=== PATIENT | male | born 1965 | race Caucasian/White ===

== ENCOUNTER 2017-09-06 22:59 | Emergency (ER) | payer SELFPAY ==
[2017-09-07] MEDS: METHYLPREDNISOLONE 125 MG INJ IM (00:08)
[2017-09-07] MEDS: ALBUTEROL 0.083% (NEB) 2.5 MG/3 ML AMP NEB (00:12)
[2017-09-07] MEDS: IPRATROPIUM (NEB) 0.5 MG/2.5 ML AMP NEB (00:12)
== END 2017-09-07 01:10 | disposition home or self-care (01) ==
LOC: FTE 22:59
DX: J20.9 Acute bronchitis, unspecified (principal)
CPT/HCPCS: 71045; 94664; 96372; 99284-25

== ENCOUNTER 2017-10-16 22:08 | Emergency (ER) | payer MEDICAID, OTHER ==
[2017-10-16] MEDS: ALBUTEROL 0.083% (NEB) 2.5 MG/3 ML AMP HHN (22:34)
[2017-10-16] MEDS: IPRATROPIUM (NEB) 0.5 MG/2.5 ML AMP HHN (22:34)
[2017-10-16] MEDS: METHYLPREDNISOLONE 125 MG INJ IV (22:48)
[2017-10-16 23:21] LABS: ADD MAN DIFF? NO
[2017-10-16 23:24] LABS: BASOPHIL # 0.1 10^3/ul (0.0-0.1); BASOPHILS % 0.9 % (0.0-2.0); EOSINOPHILS # 0.5 10^3/ul (0.0-0.5); EOSINOPHILS % 5.3 % (0.0-7.0); HEMATOCRIT 42.9 % (42.0-52.0); HEMOGLOBIN 15.1 g/dl (14.0-18.0); LYMPHOCYTES % 19.7 % (15.0-51.0); MEAN CORPUSCULAR HEMOGLOBIN 31.9 pg (29.0-33.0); MEAN CORPUSCULAR HGB CONC 35.2 g/dl (32.0-37.0); MEAN CORPUSCULAR VOLUME 90.7 fl (82.0-101.0); MEAN PLATELET VOLUME 8.9 fl (7.4-10.4); MONOCYTES % 9.8 % (0.0-11.0); NEUTROPHIL # 6.5 10^3/ul (1.6-7.5); PLATELET COUNT 304 10^3/UL (140-415); RED BLOOD COUNT 4.73 10^6/ul (4.70-6.10); RED CELL DISTRIBUTION WIDTH 11.9 % (11.5-14.5)
[2017-10-16 23:24] LABS: WHITE BLOOD COUNT 10.2 10^3/ul (4.8-10.8)
[2017-10-16 23:47] LABS: ANION GAP 12 (8-16); BLOOD UREA NITROGEN 16 mg/dl (7-20); CALCIUM 9.5 mg/dl (8.4-10.2); CARBON DIOXIDE 29 mmol/L (21-31); CHLORIDE 109 mmol/L (97-110); CREATININE 1.23 mg/dl (0.61-1.24); GLUCOSE 111 mg/dl (70-220); POTASSIUM 4.3 mmol/L (3.5-5.1); SODIUM 146 mmol/L (135-144)
[2017-10-16 23:59] LABS: TROPONIN-I < 0.012 ng/ml (0.00-0.12)
[2017-10-17] MEDS: IPRATROPIUM (NEB) 0.5 MG/2.5 ML AMP INH (00:09)
[2017-10-17] MEDS: ALBUTEROL 0.5% (NEB) 2.5 MG/0.5 ML AMP INH (00:09)
== END 2017-10-17 02:38 | disposition home or self-care (01) ==
LOC: E/R 10-17 02:38
DX: J20.9 Acute bronchitis, unspecified (principal); J45.901 Unspecified asthma with (acute) exacerbation; R40.2142 Coma scale, eyes open, spontaneous, at arrival to emergency department; R40.2252 Coma scale, best verbal response, oriented, at arrival to emergency department; R40.2362 Coma scale, best motor response, obeys commands, at arrival to emergency department
CPT/HCPCS: 71045; 80048; 84484; 85025; 93005; 94644; 94645; 96374; 99285-25

== ENCOUNTER 2017-11-22 09:17 | Emergency (ER) | payer MEDICAID ==
[2017-11-22] MEDS: METHYLPREDNISOLONE 125 MG INJ IM (09:37)
[2017-11-22] MEDS: ALBUTEROL 0.5% (NEB) 2.5 MG/0.5 ML AMP INH (10:21)
[2017-11-22] MEDS: IPRATROPIUM (NEB) 0.5 MG/2.5 ML AMP INH (10:22)
== END 2017-11-22 11:44 | disposition home or self-care (01) ==
LOC: FTE 09:17
DX: J40 Bronchitis, not specified as acute or chronic (principal)
CPT/HCPCS: 94644; 96372; 99284-25